=== PATIENT | male | born 1945 | race Caucasian/White ===

== ENCOUNTER → 2016-12-10 | Outpatient (CLI) | payer MEDICARE, OTHER ==
--- NOTE | 2016-12-10 14:18 | XR ---
EXAMINATION TYPE: XR chest 2V DATE OF EXAM: 12/10/2016 11:01 AM COMPARISON: Prior chest x-ray 17 October 2012 HISTORY: Bronchitis, cough and congestion TECHNIQUE: Frontal and lateral views of the chest are obtained. FINDINGS: There is no focal air space opacity, pleural effusion, or pneumothorax seen. The cardiac silhouette size is within normal limits. There is bronchial wall thickening. Prominent lung volumes s uggest COPD. The osseous structures are intact. IMPRESSION: Correlate for bronchitis.
== END | disposition home or self-care (01) ==
LOC: RADXRMAIN 10:49
PROVIDERS: ATTEND Internal Medicine
DX: J20.9 Acute bronchitis, unspecified (principal)
CPT/HCPCS: 71020

== ENCOUNTER → 2017-01-21 | Outpatient (CLI) | payer MEDICARE, OTHER ==
--- NOTE | 2017-01-21 14:14 | XR ---
Left knee HISTORY: Trauma and pain 3 views of the left knee No comparisons Marginal spurring, joint space loss present especially in the medial compartment, patellofemoral join t. There is chondrocalcinosis. Soft tissue swelling is noted. Suspect there are loose bodies at the p atellofemoral level. There is a joint effusion. Alignment is maintained. IMPRESSION: Correlate for crystal deposition arthropathy, there are likely loose bodies.
== END | disposition home or self-care (01) ==
LOC: RADXRMAIN 13:19
PROVIDERS: ATTEND Internal Medicine
DX: M25.562 Pain in left knee (principal)

== ENCOUNTER → 2017-02-08 | Outpatient (CLI) | payer MEDICARE, OTHER ==
--- NOTE | 2017-02-08 23:32 | MR ---
EXAMINATION TYPE: MR knee LT wo con DATE OF EXAM: 02/08/2017 COMPARISON: Left knee MRI June 02, 2015 HISTORY: knee pain per order. Pain and swelling per patient. TECHNIQUE: Multiplanar, multisequence images of the knee is performed without IV contrast. FINDINGS: MEDIAL MENISCUS: Truncated appearance to posterior horn of medial meniscus with abnormal signal exten ding to inferior articular surface is redemonstrated. Anterior and medial extrusion of the anterior h orn with central increased signal is similar to prior exam. LATERAL MENISCUS: Anterior and posterior horns are intact without tear. CRUCIATE LIGAMENTS: The anterior and posterior cruciate ligaments are intact and unremarkable. COLLATERAL LIGAMENTS: The medial collateral ligament and lateral collateral ligament complex are inta ct. Mild fluid signal surrounds medial collateral ligament. EXTENSOR MECHANISM: Visualized quadriceps and patellar tendons are intact. EFFUSION: Large suprapatellar joint effusion is not present increased in size from prior study with s ynovial plica noted. POPLITEAL CYST: There is massive multi septated popliteal cyst with intraluminal round T2 hypointense structure is redemonstrated consistent with internal debris redemonstrated. TRICOMPARTMENT SPACES: Severe joint space loss patellofemoral compartment is present similar prior. M ild to moderate joint space loss and spurring medial and lateral tibiofemoral compartments is seen. CARTILAGE: There is full-thickness chondromalacia patella involving posterior patellar pole with no r esidual cartilage identified. Some thinning of articular cartilage lateral and medial tibiofemoral co mpartments is noted. BONE MARROW SIGNAL: Some heterogeneous increased T2 signal involving posterior patellar pole is noted . OTHER: No additional significant abnormality is appreciated. IMPRESSION: 1. Stable full-thickness tear posterior horn of medial meniscus. 2. Intrasubstance tearing anterior horn of medial meniscus. 3. Mild MCL sprain. 4. Large suprapatellar joint effusion with synovitis new or more prominent from prior. 5. Large popliteal multiseptated cyst increased in size from prior with internal debris redemonstrate d. 6. Advanced degenerative changes most pronounced patellofemoral compartment with full-thickness advan lorena chondromalacia patella noted.
== END | disposition home or self-care (01) ==
LOC: RADMRIMAIN 18:53
PROVIDERS: ATTEND Internal Medicine
DX: S83.242A Other tear of medial meniscus, current injury, left knee, initial encounter (principal); S83.412A Sprain of medial collateral ligament of left knee, initial encounter; M22.42 Chondromalacia patellae, left knee; M71.22 Synovial cyst of popliteal space [Baker], left knee

== ENCOUNTER 2017-08-12 12:03 | Emergency (ER) | payer MEDICARE, OTHER ==
[2017-08-12] MEDS ORDERED: HYDROcodone/APAP 7.5-325MG 1 EACH TAB ONE (12:55)
--- NOTE | 2017-08-13 07:18 | XR ---
EXAMINATION TYPE: TEMPORARY DATE OF EXAM: 08/12/2017 COMPARISON: NONE HISTORY: Pain TECHNIQUE: Three views are submitted. FINDINGS: The osseous structures are intact. Arthropathy of the first carpal metacarpal joint noted. Arthropath y of the DIP joints. IMPRESSION: 1. No definite acute fracture or dislocation if symptoms persist, follow-up study in 7 to 10 days wo uld be suggested. 2. Arthropathy. Correlate for osteoarthritis.
== END 2017-08-12 14:30 | disposition home or self-care (01) ==
LOC: EC 12:03
DX: S61.211A Laceration without foreign body of left index finger without damage to nail, initial encounter (principal); S61.213A Laceration without foreign body of left middle finger without damage to nail, initial encounter; S61.215A Laceration without foreign body of left ring finger without damage to nail, initial encounter; Z88.6 Allergy status to analgesic agent; W31.89XA Contact with other specified machinery, initial encounter
CPT/HCPCS: 12002; 99283

== ENCOUNTER → 2018-12-11 | Outpatient (CLI) | payer MEDICARE, OTHER ==
--- NOTE | 2018-12-11 13:25 | MR ---
EXAMINATION TYPE: MR brain wo/w con DATE OF EXAM: 12/11/2018 COMPARISON: 04/05/2016 and 06/21/2017 HISTORY: Meningioma TECHNIQUE: Multiplanar, multisequence images of the brain and brainstem is performed without and with IV contras t, utilizing 10 mL intravenous Gadavist . FINDINGS: Diffusion weighted images demonstrate no evidence of a recent infarct or other diffusion abnormality. There is no extra-axial fluid collection. There are similar burden of nonspecific white matter luque ge demonstrated as confluent periventricular and other scattered subcortical foci of T2/FLAIR hyperin tensity predominantly within the supratentorium. The ventricular system and cisternal spaces are symm etrically prominent compatible with age-related volume loss. Normal pressure hydrocephalus could also be considered given the ventricular prominence is slightly greater than the sulcal prominence. Partially empty sella turcica is incidentally noted. The craniocervical junction appears within senia l limits. The dural venous sinuses appear patent. Mild mucosal thickening is seen within the ethmoid sinuses. The remaining visualized sinuses are clear and the globes are intact. There is redemonstration of 2 extra-axial homogeneously enhancing masses. The first is within the louisa or of the anterior cranial fossa on the left measuring 7.6 x 7.1 mm as opposed to the MRI of 2016 whe re this measured 7.4 mm. Overall this is stable. Right extra-axial mass adjacent to the cerebellar he misphere in the posterior cranial fossa measures approximately 1 cm, stable from the prior and demons trates a small dural tail. No additional areas of abnormal intracranial enhancement are seen. IMPRESSION: 1. Stable left anterior cranial fossa and right posterior cranial fossa extra-axial probable small me ningiomas dating back to 04/05/2016. 2. Similar appearing moderate burden nonspecific white matter change, likely on the basis of chronic microangiopathy, and moderate cerebral atrophy. 3. Ventricular prominence, although similar to the prior exams, is slightly out of proportion to the sulcal prominence and normal pressure hydrocephalus could also be considered in the appropriate clini stefano setting.
== END | disposition home or self-care (01) ==
LOC: RADMRIMAIN 10:45
PROVIDERS: ATTEND Internal Medicine
DX: R90.89 Other abnormal findings on diagnostic imaging of central nervous system (principal); Z86.011 Personal history of benign neoplasm of the brain
CPT/HCPCS: 70553; A9585

== ENCOUNTER → 2018-12-26 | Outpatient (CLI) | payer MEDICARE, OTHER ==
--- NOTE | 2018-12-27 09:54 | US ---
EXAMINATION TYPE: US carotid duplex BILAT DATE OF EXAM: 12/26/2018 COMPARISON: CLINICAL HISTORY: Occlusion and stenosis I65.23. TIA x 6 years ago, HTN with meds, nonsmoker EXAM MEASUREMENTS: RIGHT: Peak Systolic Velocity (PSV) cm/sec ----- Right CCA: 53.8 ----- Right ICA: 93.2 ----- Right ECA: 162.9 ICA/CCA ratio: 1.7 RIGHT: End Diastole cm/sec ----- Right CCA: 16.2 ----- Right ICA: 31.5 ----- Right ECA: 18.9 LEFT: Peak Systolic Velocity (PSV) cm/sec ----- Left CCA: 68.9 ----- Left ICA: 108.3 ----- Left ECA: 143.2 ICA/CCA ratio: 1.6 LEFT: End Diastole cm/sec ----- Left CCA: 18.3 ----- Left ICA: 37.1 ----- Left ECA: 15.5 VERTEBRALS (direction of flow): Right Vertebral: Antegrade Left Vertebral: Antegrade Rhythm: Normal No significant stenosis. Elevated bilateral ECA's. Plaque seen in bilateral bulbs. Bilateral wall t hickening. IMPRESSION: 1. Atherosclerotic plaque bilaterally with no significant hemodynamic stenosis by carotid Doppler ult rasound. Criteria for Assigning % of Stenosis / Diameter reduction (Estimation based on the indirect measurements of the internal carotid artery velocities (ICA PSV). 1. Normal (no stenosis)=ICA PSV < 125 cm/s: ratio < 2.0: ICA EDV<40 cm/s. 2. Less than 50% stenosis=ICA PSV < 125 cm/s: ratio < 2.0: ICA EDV<40 cm/s. 3. 50 to 69% stenosis=ICA PSV of 125 to 230 cm/s: ration 2.0 ? 4.0: ICA EDV 40-100 cm/s. 4. Greater than 70% stenosis to near occlusion= ICA PSV > 230 cm/s: ratio > 4.0: ICA EDV > 100 cm/s. 5. Near occlusion= ICA PSV velocities may be low or undetectable: variable ratio and ICA EDV. 6. Total occlusion=unable to detect flow.
--- NOTE | 2018-12-27 12:41 | ECHOF ---
Referral Reason:Occlusion and stenosis I65.23 MEASUREMENTS -------- HEIGHT: 182.9 cm WEIGHT: 96.6 kg BP: IVSd: 1.2 cm (0.6 - 1.1) LVIDd: 2.1 cm (3.9 - 5.3) LVPWd: 1.0 cm (0.6 - 1.1) IVSs: 1.7 cm LVIDs: 1.3 cm LVPWs: 1.8 cm Ao Diam: 3.3 cm (2.0 - 3.7) AV Cusp: 1.7 cm (1.5 - 2.6) LA Diam: 2.6 cm (2.7 - 3.8) MV EXCURSION: 14.273 mm (> 18.000) MV EF SLOPE: 71 mm/s (70 - 150) EPSS: 1.4 cm MV E Devante: 0.84 m/s MV DecT: 191 ms MV A Devante: 0.67 m/s MV E/A Ratio: 1.24 AR PHT: 388 ms RAP: 5.00 mmHg RVSP: 27.65 mmHg FINDINGS -------- Sinus rhythm. This was a technically good study. The left ventricular size is normal. There is mild concentric left ventricular hypertrophy. Overa ll left ventricular systolic function is normal with, an EF between 55 - 60 %. The right ventricle is normal in size. The left atrial size is normal. The right atrial size is normal. Interatrial and interventricular septum intact. The aortic valve is trileaflet and appears structurally normal. There is mild aortic regurgitation. The mitral valve leaflets are mildly thickened. Mild mitral regurgitation is present. Mild tricuspid regurgitation present. The right ventricular systolic pressure, as measured by Doppl er, is 27.65mmHg. There is no pulmonic regurgitation present. The aortic root size is normal. Normal inferior vena cava with normal inspiratory collapse consistent with estimated right atrial pre ssure of 5 mmHg. There is no pericardial effusion. CONCLUSIONS -------- 1. Sinus rhythm. 2. This was a technically good study. 3. The left ventricular size is normal. 4. There is mild concentric left ventricular hypertrophy. 5. Overall left ventricular systolic function is normal with, an EF between 55 - 60 %. 6. The right ventricle is normal in size. 7. The left atrial size is normal. 8. The right atrial size is normal. 9. Interatrial and interventricular septum intact. 10. The aortic valve is trileaflet and appears structurally normal. 11. There is mild aortic regurgitation. 12. The mitral valve leaflets are mildly thickened. 13. Mild mitral regurgitation is present. 14. Mild tricuspid regurgitation present. 15. The right ventricular systolic pressure, as measured by Doppler, is 27.65mmHg. 16. There is no pulmonic regurgitation present. 17. The aortic root size is normal. 18. Normal inferior vena cava with normal inspiratory collapse consistent with estimated right atrial pressure of 5 mmHg. 19. There is no pericardial effusion. HEAD GIRLS GOLF COACH: Keri Contreras RDCS
== END ==
LOC: RADECHMAIN 14:53
PROVIDERS: ATTEND Internal Medicine
DX: I63.50 Cerebral infarction due to unspecified occlusion or stenosis of unspecified cerebral artery (principal); I65.23 Occlusion and stenosis of bilateral carotid arteries
CPT/HCPCS: 93306; 93880

== ENCOUNTER 2019-01-03 07:06 | Day surgery (SDC) | payer MEDICARE, OTHER ==
[2019-01-01 11:49] VITALS: BMI 30.5
[~2019-01-03 07:06] MED LIST: LACTATED RINGERS 1,000 ML IV SCH; LIDOCAINE 1% 20 ML VIAL (10MG/ML) FOR IV START INTRADERMA PRN
[2019-01-03] MEDS ORDERED: LACTATED RINGERS 1,000 ML IV ONE (07:24)
[2019-01-03 07:36] VITALS: RESP 16
[2019-01-03] MEDS ORDERED: MIDAZOLAM 2 MG/2 ML VIAL ONE (07:56)
[2019-01-03] MEDS ORDERED: fentaNYL (PF) 50 MCG/ML 2 ML AMP ONE (07:56)
[2019-01-03] MEDS ORDERED: PROPOFOL 10 MG/ML 20 ML VIAL IV ONE (07:56)
--- NOTE | 2019-01-03 08:14 | P.GSHP ---
History of Present Illness H&P Date: 01/03/19 Chief Complaint: Colon cancer screening Patient here today for colonoscopy. Last colonoscopy 15 years ago. No bowel related complaints. No family history colon cancer. Past Medical History Past Medical History: Hypertension, Liver Disease, Memory Impairment, Thyroid Disorder Additional Past Medical History / Comment(s): Hx "Hepatitis yellow jaundice 1967". Current bilateral torn biceps. Hx heart skipping beat 15 yrs ago. Hx Bronchitis. History of Any Multi-Drug Resistant Organisms: None Reported Past Surgical History: Back Surgery, Joint Replacement Additional Past Surgical History / Comment(s): Bilateral knee replacements, back surgery X2, eye surgery. Past Anesthesia/Blood Transfusion Reactions: Motion Sickness, Postoperative Nausea & Vomiting (PONV) Past Psychological History: No Psychological Hx Reported Smoking Status: Never smoker Past Alcohol Use History: Occasional Past Drug Use History: None Reported - Past Family History Father Family Medical History: Cancer Additional Family Medical History / Comment(s): Stomach cancer. Medications and Allergies Home Medications Medication Instructions Recorded Confirmed Type Ascorbic Acid [Vitamin C] 500 mg PO DAILY 01/01/19 01/03/19 History Calcium Carbonate [Calcium] 600 mg PO DAILY 01/01/19 01/03/19 History Glucosamine/Chondr Amaya A Sod [Osteo 1 each PO DAILY 01/01/19 01/03/19 History Bi-Flex Caplet] Levothyroxine Sodium 100 mcg PO QAM 01/01/19 01/03/19 History Lisinopril 20 mg PO QAM 01/01/19 01/03/19 History Multivitamins, Thera [Multivitamin 1 tab PO DAILY 01/01/19 01/01/19 History (formulary)] Eden-3 Fatty Acids/Fish Oil [Fish 1 each PO DAILY 01/01/19 01/03/19 History Oil 1,000 mg Softgel] Celecoxib [CeleBREX] 200 mg PO DAILY 01/03/19 01/03/19 History Allergies Allergy/AdvReac Type Severity Reaction Status Date / Time ibuprofen Allergy Swelling Verified 01/03/19 07:37 Surgical - Exam Vital Signs Pulse Resp Pulse Ox 72 16 96 01/03/19 07:34 01/03/19 07:34 01/03/19 07:34 Physical exam: General: Well-developed, well-nourished HEENT: Normocephalic, sclerae nonicteric Abdomen: Nontender, nondistended Extremities: No edema Neuro: Alert and oriented Assessment and Plan (1) Colon cancer screening Narrative/Plan: Will proceed with colonoscopy Current Visit: Yes Status: Acute Code(s): Z12.11 - ENCOUNTER FOR SCREENING FOR MALIGNANT NEOPLASM OF COLON SNOMED Code(s): 953986278
--- NOTE | 2019-01-03 08:27 | P.PCN ---
Date of Procedure: 01/03/19 Procedure(s) Performed: PREOPERATIVE DIAGNOSIS: Colon cancer screening POSTOPERATIVE DIAGNOSIS: Small internal and external hemorrhoids PROCEDURE: Colonoscopy ANESTHESIA: MAC SURGEON: Jackson Tavera M.D. SPECIMENS: None ENDOSCOPIC PROCEDURE: The patient was placed on the endoscopy table in the left decubitus position. The Olympus colonoscope was inserted into the anus and passed under direct visualization to the base of the cecum. The appendiceal orifice was visualized. From that point the scope was slowly withdrawn inspecting all surfaces carefully. There were no neoplastic inflammatory or polypoid lesions throughout the cecum, ascending, transverse, descending, sigmoid and rectum. There was no visible diverticulosis noted. Digital rectal examination revealed small internal and external hemorrhoids without any evidence of active bleeding. The patient was taken to the recovery room in stable condition per anesthesia guidelines. RECOMMENDATIONS: Increase fiber. Follow-up colonoscopy 10 years.
[2019-01-03 08:46] VITALS: BP 136/77; PULSE 72
== END 2019-01-03 09:30 | disposition home or self-care (01) ==
LOC: ORWHC2ENDO 07:06
PROVIDERS: ATTEND Surgery
DX: Z12.11 Encounter for screening for malignant neoplasm of colon (principal); K64.8 Other hemorrhoids; K64.4 Residual hemorrhoidal skin tags; I10 Essential (primary) hypertension; R41.3 Other amnesia; E07.9 Disorder of thyroid, unspecified; Z96.653 Presence of artificial knee joint, bilateral; Z79.890 Hormone replacement therapy; Z79.1 Long term (current) use of non-steroidal anti-inflammatories (NSAID); Z79.899 Other long term (current) drug therapy; Z88.6 Allergy status to analgesic agent
CPT/HCPCS: J2250; J3010; J2704; G0121

== ENCOUNTER 2019-08-03 21:02 | Emergency (ER) | payer MEDICARE, OTHER ==
--- NOTE | 2019-08-03 21:35 | ED ---
URI HPI - General Chief Complaint: Upper Respiratory Infection Stated Complaint: Cough Time Seen by Provider: 08/03/19 21:10 Source: patient Mode of arrival: ambulatory Limitations: no limitations - History of Present Illness Initial Comments: 's patient is 73-year-old man who states that he has history of frequent bronchitis, and presents to be evaluated for what he suspects is an exacerbation of the same. He states that his symptoms started 3 days ago with a bit of sore throat, mainly a lot of discomfort when he was trying to swallow. He states that over the next couple of days the symptoms seem to migrate lower in his chest. He is having a fair amount of coughing, usually nonproductive though with occasional yellowish sputum. Patient states she has had hot and cold spells and also some body aches associated. MD Complaint: cough, sore throat Onset/Timin -: days(s) Severity: mild Quality: aching Consistency: constant Improves With: nothing Worsens With: other (Ruffing) Associated Symptoms: fever, chills, myalgias, sore throat, cough Treatments Prior to Arrival: none - Related Data Home Medications Medication Instructions Recorded Confirmed Ascorbic Acid [Vitamin C] 500 mg PO DAILY 01/01/19 01/03/19 Calcium Carbonate [Calcium] 600 mg PO DAILY 01/01/19 01/03/19 Glucosamine/Chondr Amaya A Sod [Osteo 1 each PO DAILY 01/01/19 01/03/19 Bi-Flex Caplet] Levothyroxine Sodium 100 mcg PO QAM 01/01/19 01/03/19 Lisinopril 20 mg PO QAM 01/01/19 01/03/19 Multivitamins, Thera [Multivitamin 1 tab PO DAILY 01/01/19 01/01/19 (formulary)] Scott-3 Fatty Acids/Fish Oil [Fish 1 each PO DAILY 01/01/19 01/03/19 Oil 1,000 mg Softgel] Celecoxib [CeleBREX] 200 mg PO DAILY 01/03/19 01/03/19 Previous Rx's Medication Instructions Recorded Promethazine 6.25MG/5Ml [Phenergan 5 ml PO Q4HR PRN #120 ml 08/03/19 Syrup] predniSONE 60 mg PO DAILY #30 tab 08/03/19 Allergies Allergy/AdvReac Type Severity Reaction Status Date / Time ibuprofen Allergy Swelling Verified 08/03/19 21:08 Review of Systems ROS Statement: Those systems with pertinent positive or pertinent negative responses have been documented in the HPI. ROS Other: All systems not noted in ROS Statement are negative. Constitutional: Reports: fever, chills ENT: Reports: throat pain Respiratory: Reports: cough. Denies: dyspnea, hemoptysis Cardiovascular: Denies: chest pain, palpitations, edema, syncope Gastrointestinal: Denies: abdominal pain, vomiting, diarrhea Genitourinary: Denies: dysuria Musculoskeletal: Reports: myalgia. Denies: back pain Skin: Denies: rash Neurological: Denies: headache, weakness, numbness Past Medical History Past Medical History: Hypertension, Thyroid Disorder Additional Past Medical History / Comment(s): neck pain History of Any Multi-Drug Resistant Organisms: None Reported Additional Past Surgical History / Comment(s): thyroid surgery, right hand Past Psychological History: No Psychological Hx Reported Smoking Status: Never smoker Past Alcohol Use History: Occasional Past Drug Use History: None Reported General Exam Limitations: no limitations General appearance: alert, in no apparent distress Head exam: Present: atraumatic, normocephalic Eye exam: Present: normal appearance. Absent: scleral icterus, conjunctival injection ENT exam: Present: normal oropharynx, mucous membranes moist Neck exam: Present: normal inspection, full ROM. Absent: meningismus Respiratory exam: Present: normal lung sounds bilaterally. Absent: respiratory distress, wheezes, rales, rhonchi, stridor Cardiovascular Exam: Present: regular rate, normal rhythm, normal heart sounds. Absent: systolic murmur, diastolic murmur, rubs, gallop GI/Abdominal exam: Present: soft. Absent: distended, tenderness, guarding Extremities exam: Present: normal inspection, normal capillary refill. Absent: pedal edema, calf tenderness Back exam: Present: normal inspection. Absent: CVA tenderness (R), CVA tenderness (L) Neurological exam: Present: alert Skin exam: Present: warm, dry, intact, normal color. Absent: rash Course Vital Signs 08/03/19 08/03/19 21:04 21:17 Temperature 98.8 F Pulse Rate 94 Respiratory 16 20 Rate Blood Pressure 157/81 O2 Sat by Pulse 96 Oximetry Medical Decision Making - Lab Data Lab Results 08/03/19 Range/Units 21:41 Influenza Type A RNA Not Detected (Not Detectd) Influenza Type B (PCR) Not Detected (Not Detectd) Disposition Clinical Impression: Bronchitis Disposition: HOME SELF-CARE Condition: Good Instructions (If sedation given, give patient instructions): Acute Bronchitis (ED) Prescriptions: Promethazine 6.25MG/5Ml [Phenergan Syrup] 5 ml PO Q4HR PRN #120 ml PRN Reason: Cough predniSONE 60 mg PO DAILY #30 tab Is patient prescribed a controlled substance at d/c from ED?: No Referrals: Levi Gao MD [Primary Care Provider] - 1-2 days
--- NOTE | 2019-08-03 21:44 | XR ---
EXAMINATION TYPE: XR chest 2V DATE OF EXAM: 08/03/2019 COMPARISON: 12/10/2016 HISTORY: Cough and congestion TECHNIQUE: 2 views FINDINGS: Heart and mediastinum are normal. Lungs are clear. Diaphragm is normal. Bony thorax is inta ct. IMPRESSION: Normal chest. No change.
[2019-08-03] MEDS ORDERED: predniSONE 20 MG TAB PO STA (22:49)
[2019-08-03 23:06] VITALS: BP 148/79; PULSE 90; RESP 18; TEMP 98
== END 2019-08-03 23:06 | disposition home or self-care (01) ==
LOC: EC 21:02
DX: J40 Bronchitis, not specified as acute or chronic (principal); I10 Essential (primary) hypertension; E07.9 Disorder of thyroid, unspecified; Z79.890 Hormone replacement therapy; Z79.899 Other long term (current) drug therapy; Z88.6 Allergy status to analgesic agent
CPT/HCPCS: 87502; 71046; 99283; J7512

== ENCOUNTER → 2019-08-10 | Outpatient (CLI) | payer MEDICARE, OTHER ==
[2019-08-10 13:13] LABS: Appearance,Urine Clear (Clear); Bilirubin,Urine Negative (Negative); Blood,Urine Negative (Negative); Color,Urine Yellow; Glucose,Urine (UA) Negative (Negative); Ketones,Urine Negative (Negative); Leukocyte Esterase,Urine Negative (Negative); Nitrite,Urine Negative (Negative); PH, Urine 5.5 (5.0-8.0); Protein,Urine Negative (Negative); Specific Gravity,Urine 1.028 (1.001-1.035)
[2019-08-10 13:16] LABS: Basophils % (A) 0 %; Eosinophils # (A) 0.2 k/uL (0-0.7); Eosinophils % (A) 2 %; HCT 40.8 % (39.0-53.0); HGB 14.4 gm/dL (13.0-17.5); Lymphocytes # (A) 2.6 k/uL (1.0-4.8); Lymphocytes % (A) 26 %; MCH 31.1 pg (25.0-35.0); MCHC 35.3 g/dL (31.0-37.0); MCV 88.3 fL (80.0-100.0); Mean Platelet Volume 7.5; Monocytes # (A) 0.6 k/uL (0-1.0); Monocytes % (A) 6 %; Neutrophils # (A) 6.4 k/uL (1.3-7.7); Neutrophils % (A) 64 %; Platelet Count 207 k/uL (150-450); RBC 4.62 m/uL (4.30-5.90); RDW 12.8 % (11.5-15.5); WBC 9.9 k/uL (3.8-10.6)
[2019-08-10 14:00] LABS: Erythrocyte Sedimentation Rate 4 mm/hr (0-15)
[2019-08-10 19:08] LABS: Protein, Total 5.5 g/dL (6.2-8.2)
[2019-08-10 19:09] LABS: ALT 36 U/L (10-49); AST 21 U/L (14-35); African American GFR (CKD) 98.5 (60.0-200.0); Albumin/Globulin Ratio 2.38 (1.60-3.17); Alkaline Phosphatase 85 U/L (41-126); C Reactive Protein <0.4 mg/dL (0.0-0.8); Calcium 9.5 mg/dL (8.7-10.3); Carbon Dioxide 27.8 mmol/L (21.6-31.8); Chloride 105 mmol/L (96-109); Globulin 1.6 g/dL (1.6-3.3); Glucose 79 mg/dL (70-110); Phosphorus 3.4 mg/dL (2.4-5.1); Rheumatoid Factor, Qnt 6 IU/mL (0-15); Sodium 139 mmol/L (135-145); Total Bilirubin 0.7 mg/dL (0.3-1.2); Total Protein 5.4 g/dL (6.2-8.2)
[2019-08-10 19:18] LABS: Creatine Kinase 41 U/L (35-257); LDH 176 U/L (120-246)
[2019-08-10 19:43] LABS: Streptolysin O Ab(ASO) 57 IU/mL (0-200)
[2019-08-10 20:05] LABS: Cyclic Citrull Pep IgG Unit <0.5 U/mL; Cyclic Citrullinated Pep IgG NEGATIVE (NEGATIVE)
[2019-08-10 20:31] LABS: Hemoglobin A1C 5.5 % (4.0-6.0)
[2019-08-11 09:32] LABS: Angiotensin-1 Converting Enz. 7 U/L (8-52)
[2019-08-12 10:53] LABS: HCV Qualitative Result Not detected (Not detected); HCV Quant Log <1.08 (<1.08); HCV Quantitative Result <12 IU/mL (<12)
[2019-08-13 11:20] LABS: HLA B27 NEGATIVE
[2019-08-14 12:56] LABS: Vit B1(Thiamine) 86 ug/L (38-122)
== END | disposition home or self-care (01) ==
LOC: LABWHC1 11:53
PROVIDERS: ATTEND Physical Medicine & Rehabilitation
DX: M54.2 Cervicalgia (principal); I10 Essential (primary) hypertension; E03.9 Hypothyroidism, unspecified; M50.323 Other cervical disc degeneration at C6-C7 level; M50.322 Other cervical disc degeneration at C5-C6 level; M51.36 Other intervertebral disc degeneration, lumbar region; M47.812 Spondylosis without myelopathy or radiculopathy, cervical region; M47.816 Spondylosis without myelopathy or radiculopathy, lumbar region; M19.012 Primary osteoarthritis, left shoulder; M19.011 Primary osteoarthritis, right shoulder; M54.12 Radiculopathy, cervical region; M54.16 Radiculopathy, lumbar region; M62.830 Muscle spasm of back; M25.511 Pain in right shoulder; M25.512 Pain in left shoulder; M54.5 Low back pain
CPT/HCPCS: 36415; 80053; 81003; 82164; 82175; 82306; 82310; 82550; 82553; 82570; 82607; 83036; 83516; 83615; 83655; 83825; 83970; 84100; 84165; 84207; 84425; 84439; 84443; 84550; 85025; 85652; 86038; 86060; 86140; 86200; 86235; 86431; 86618; 86780; 86812; 87522